=== PATIENT | male | born 1995 | race Caucasian/White ===

== ENCOUNTER 2018-12-25 11:18 | Emergency (ER) | payer OTHER ==
[2018-12-25 11:31] VITALS: BP 141/78; PULSE 82; TEMP 98.4; BMI 19.8
[2018-12-25] MEDS ORDERED: TETRACAINE 0.5% HCL 0.6ML DROPPER.BOTTLE OD ONE (12:22)
[2018-12-25] MEDS ORDERED: FLUORESCEIN NA 1 EA STRIP OD ONE (12:22)
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
[2018-12-25] MEDS ORDERED: TETRACAINE 0.5% OPHTH SOLN 2 ML BOTTLE ONE (12:26)
[2018-12-25] MEDS ORDERED: FLUORESCEIN NA 1 EA STRIP ONE (12:26)
== END 2018-12-25 12:57 | disposition home or self-care (01) ==
LOC: JER 11:18 → JERFT 11:18
DX: T20.19XA Burn of first degree of multiple sites of head, face, and neck, initial encounter (principal); T20.15XA Burn of first degree of scalp [any part], initial encounter; T31.0 Burns involving less than 10% of body surface; S05.01XA Injury of conjunctiva and corneal abrasion without foreign body, right eye, initial encounter; X16.XXXA Contact with hot heating appliances, radiators and pipes, initial encounter; Y93.89 Activity, other specified; Y92.63 Factory as the place of occurrence of the external cause; Y99.0 Civilian activity done for income or pay
CPT/HCPCS: 99281-25